=== PATIENT | male | born 1975 | race Caucasian/White ===

== ENCOUNTER 2024-06-06 19:59 | Emergency (ER) | payer OTHER, SELFPAY ==
[2024-06-06 20:03] VITALS: BP 160/112
[2024-06-06 20:43] LABS: % Eosinophils 1.2 % (0-6); % Immature Granulocytes 0.7 % (0-0.5); % Lymphocytes 26.7 % (20.5-51.1); % Monocytes 8.5 % (1.7-9.3); % Neutrophils 61.9 % (42.2-75.2); ALT (SGPT) 45 U/L (0-50); AST (SGOT) 49 U/L (17-59); Absolute Eosinophils 0.1 10^3/uL (0-0.7); Absolute Lymphocytes 1.1 10^3/uL (1.2-3.4); Absolute Monocytes 0.3 10^3/uL (0.1-0.6); Absolute Neutrophils 2.5 10^3/uL (1.4-6.5); Albumin 4.5 g/dl (3.5-5.0); Alkaline Phosphatase 78 U/L (38-126); Blood Urea Nitrogen 11 mg/dl (9-20); Calcium 9.5 mg/dl (8.4-10.2); Carbon Dioxide 23 mmol/L (22-30); Chloride 99 mmol/L (98-107); Glucose 145 mg/dl (70-99); Hematocrit 44.4 % (39.0-52.0); Hemoglobin 16.5 g/dL (13.0-18.0); Mean Corp Hgb Conc. 37.2 g/dL (33.0-37.0); Mean Corpuscular Hgb 31.3 pg (27.0-31.0); Mean Corpuscular Volume 84.1 fL (80.0-94.0); Mean Platelet Volume 9.6 fL (7.4-10.4); Nucleated Red Blood Cells % 0 % (-); Platelet Count 144 10^3/uL (130-400); Potassium 3.9 mmol/L (3.5-5.1); Red Blood Cell Count 5.28 10^6/uL (4.70-6.10); Red Cell Dist. Width 11.4 % (11.5-14.5); Sodium 134 mmol/L (135-145); Total Bilirubin 0.7 mg/dl (0.2-1.3); Total Protein 7.3 g/dl (6.3-8.2); eGFR > 60.00
[2024-06-06 20:44] LABS: Lipase 193 U/L (23-300)
--- NOTE | 2024-06-06 22:12 | ED.GENMED ---
History of Present Illness
General
Chief Complaint: Fever
Time Seen by Provider: 06/06/24 22:12
History of Present Illness
History of Present Illness:
HPI: Patient presents with general unwell feeling including headache and fevers. He reports having negative COVID, flu, and strep testing at urgent care. The headache is described as bifrontal toward the temples and does not have any neck pain.
He also reports some discomfort in the abdomen more so in the abdominal mid axillary line on the right side as well as some left flank discomfort. He states that his urine has been dark and he has been having trouble staying hydrated.
EXAM:
GENERAL: Well appearing in no distress, febrile
HEENT: Moist oral mucosa, no meningeal signs
CARDIOVASCULAR: No murmurs, borderline tachycardic heart rate, regular rhythm, No chest wall tenderness
PULMONARY: No respiratory distress, breath sounds are clear and equal
ABDOMEN: Soft with no peritoneal signs, no significant abdominal tenderness however he does have some tenderness more so to the far lateral aspect near the anterior mid axillary line
NEUROLOGIC: Excellent strength all extremities, no coordination deficits
PSYCHIATRIC: Appropriate mental status, normal insight and judgement
EXTREMITIES: Nontender, no edema, moves all extremities equally
SKIN: No rash, no lesions
TIME OF INITIAL ENCOUNTER: 10:20 PM
NUMBER AND COMPLEXITY OF PROBLEMS ADDRESSED AT THE ENCOUNTER
� Chronic conditions affecting care: GERD, smoker
� Acute Exacerbation and/or Progression of Chronic Illness: This is an acute problem
� Differential Diagnosis includes: Acute febrile illness, viral syndrome, doubt pneumonia as he has no cough and clear breath sounds, urinary tract infection, bacteremia/sepsis
AMOUNT AND/OR COMPLEXITY OF DATA TO BE REVIEWED AND ANALYZED
� I performed an independent evaluation of and my interpretation is:
EKG:
CT: CT imaging shows a normal appendix and suggests mesenteric adenitis in the right lower quadrant
X-rays:
Laboratory Studies: White count is slightly low at 4.0, hemoglobin 16.5, normal renal function and normal LFTs, lipase is normal, urinalysis is clear, lactic is 0.8
Other:
� Review of other/old records: The patient was admitted here in 2016 with acute renal failure
� Clinical information was obtained by an independent historian: None needed
� Prescriptions/Medications Considered but not given:
� Further testing considered but not performed:
RISK OF COMPLICATIONS AND/OR MORBIDITY OR MORTALITY OF PATIENT MANAGEMENT
� Social determinants of health affecting care: Lives at home
� Discussion with other providers:
� Escalation of care including admission/observation vs risk of discharge considered: Suspect more of a viral syndrome. The patient has a vague headache and some right-sided far lateral abdominal discomfort with no significant
tenderness. Will also check lactic/blood cultures as patient did have fever with mild tachycardia. The lactic is normal. Urinalysis negative for infection. CT imaging ultimately obtained as he has ongoing pain lateral to the right lower
quadrant. CT imaging shows a normal appendix but just more of a mesenteric adenitis. On reassessment at 1:20 AM, the patient appears very comfortable.
Past History
Past History
ED Past Medical History: None
ED Past Surgical History: None
Social History
Tobacco: Non-smoker
Alcohol: None
Drug: None
Personal:
Living: with family
Employment: Employed
Phy Exam
Physical Exam
Physical Exam:
See HPI
Course
Orders/Labs/Results
Orders:
Orders
06/06/24 20:09
Acetaminophen [Tylenol] 1,000 mg .ROUTE .STK-MED ONE
06/06/24 20:12
CMP [Comprehensive Metabolic Panel] Urgent
Complete Blood Count/With Diff Urgent
Lipase Urgent
06/06/24 22:14
0.9% Sodium Chloride 1000 ml [Nss] 1,000 ml IV BOLUS
Acetaminophen [Tylenol] 1,000 mg PO NOW STA
06/06/24 22:20
Ketorolac [Toradol] 15 mg IV NOW STA
06/06/24 22:26
Lactic Acid Q4H
Comment: CANCEL 2nd LACTIC ACID IF 1st LACTIC ACID IS LESS THAN 2
Urinalysis Reflex To Culture Urgent
Date Specimen was Collected: 06/06/24
Time Specimen was Collected: 22:22
Blood Culture Urgent
ADRI Source: Blood/Venous
Specimen Description:
06/07/24 00:20
CT Abd/pelvis W Iv Cont Urgent
Reason For Exam: fevers R lateral lower abd pain
Abnormal Lab Results
06/06/24
20:12
WBC 4.0 L 10^3/uL
(4.8-10.8)
MCH 31.3 H pg
(27.0-31.0)
MCHC 37.2 H g/dL
(33.0-37.0)
RDW 11.4 L %
(11.5-14.5)
Absolute Lymphs (auto) 1.1 L 10^3/uL
(1.2-3.4)
Immature Gran % 0.7 H %
(0-0.5)
Sodium 134 L mmol/L
(135-145)
Glucose 145 H mg/dl
(70-99)
06/06/24 20:12
06/06/24 20:12
Vital Signs
Initial and Last Documented VS:
Initial Vital Signs
Temp Pulse Resp BP Pulse Ox
101.5 F H 110 22 160/112 96
06/06/24 20:03 06/06/24 20:03 06/06/24 20:03 06/06/24 20:03 06/06/24 20:03
Last Documented Vital Signs
Temp Pulse Resp BP Pulse Ox
101.5 F H 89 18 165/85 94
06/06/24 20:03 06/06/24 22:13 06/06/24 22:13 06/06/24 22:13 06/06/24 22:13
*Critical Care Note
Total Time (30-74mins, 75-104mins- exclusive of procedures): Not Applicable
ED Attending Note
-
Portions of this chart may have been created with voice recognition software.� Occasional wrong word or��sound alike� substitutions may have occurred due to the inherent limitations of voice recognition software.
Discharge Plan
Departure
Patient Disposition: Home (Routine Discharge)
Date of Disposition: 06/07/24
Time of Disposition: 01:17
Patient with high blood pressure during this ER visit?: Yes
Discharge Problem:
Acute febrile illness
Instructions: Viral Syndrome (DC), Mesenteric Lymphadenitis (DC)
Prescriptions:
No Action
acetaminophen 325 MG tablet
325 mg PO BIDPRN PRN (Reason: knee pain )
calcium carbonate [Antacid (calcium carbonate)] 1 TABLET tablet,chewable
2 tab PO PRN PRN (Reason: reflux)
alum-mag hydroxide-simeth [Mag-Al Plus] 30 ML suspension
30 ml PO DAILYPRN PRN (Reason: reflux)
vancomycin 250 MG/5 ML recon soln
250 mg PO Q6 Qty: 60 0RF
Saccharomyces boulardii 250 MG capsule
250 mg PO BID Qty: 60 0RF
Referrals:
UNKNOWN - PT DOES,NOT KNOW [Family Provider] -
Activity Restrictions/Additional Instructions:
Please follow-up with your primary care doctor. I recommend 3-4 [id number]-qygnnof ibuprofen (Motrin) every 8 hours with food for a few days. You can also take Tylenol. The white count is slightly low at 4.0�this is commonly seen with viral
syndromes. Urinalysis shows no sign of infection and no sign of blood. The CAT scan shows a normal. There are some swollen lymph nodes in the right lower quadrant which can also be seen with viral syndrome/mesenteric adenitis.
Interventions
Interventions:
*Risk Screen - Suicide Last Done: 06/06/24 20:03
*General Assessment Last Done: 06/06/24 22:38
*Neglect/Abuse Screening Last Done: 06/06/24 20:03
ZS-Ixipnf-Rsilfykgtj Assessment Last Done: 06/06/24 22:38
ED- Cardiac Assessment Last Done: 06/06/24 22:38
ED- Neurological Assessment Last Done: 06/06/24 22:38
ED- Pulmonary Assessment Last Done: 06/06/24 22:38
ED-Skin Assessment Last Done: 06/06/24 22:38
Discharge Date and Time
Print Language: ANDORRAN
[2024-06-06 22:13] VITALS: BP 165/85
[2024-06-06] MEDS: TORADOL 15 MG IV (22:24)
[2024-06-06] MEDS: TYLENOL 1000 MG PO (22:24)
[2024-06-06] MEDS: NSS 1000 IV (22:25)
[2024-06-06 22:39] LABS: Urine Albumin Negative (Neg - Trace); Urine Bilirubin Negative (Negative); Urine Character Clear (Clear); Urine Color Yellow; Urine Glucose Negative (Negative); Urine Ketone Negative (Negative); Urine Leukocyte Negative (Negative); Urine Nitrite Negative (Negative); Urine Occult Blood Negative (Negative); Urine Specific Gravity 1.005 (<1.030); Urine Urobilinogen Negative (Neg - 1+)
[2024-06-06 22:52] LABS: Lactic Acid 0.8 mmol/L (0.7-2.0)
[2024-06-07 01:40] VITALS: BP 159/80
== END 2024-06-07 01:41 | disposition home or self-care (01) ==
LOC: EMR 19:59
PROVIDERS: Student in an Organized Health Care Education/Training Program; EMERGENCY PHYSICIAN Emergency Medicine
DX: R50.9 Fever, unspecified (principal); R51.9 Headache, unspecified; R10.9 Unspecified abdominal pain; R03.0 Elevated blood-pressure reading, without diagnosis of hypertension; I88.0 Nonspecific mesenteric lymphadenitis; Z88.5 Allergy status to narcotic agent
CPT/HCPCS: 99285; 96374; 96361; 74177; 80053; 81003; 83605; 83690; 85025; 87040; Q9967